=== PATIENT | female | born 1950 | race African-American/Black ===

== ENCOUNTER 2017-12-06 07:52 | Day surgery (SDC) | payer OTHER, MEDICARE ==
[2017-12-06] MEDS ORDERED: CEFAZOLIN 1 GM INJ (09:07)
[2017-12-06] MEDS ORDERED: MIDAZOLAM 1 MG/ML 2 ML INJ (09:07)
[2017-12-06] MEDS ORDERED: PROPOFOL 20 ML ×2 (09:07→09:09)
[2017-12-06] MEDS ORDERED: ROPIVACAINE 0.5 % 30 ML VIAL (09:08)
[2017-12-06] MEDS ORDERED: FENTAnyl 50 MCG/ML VIAL ×2 (09:08→09:53)
[2017-12-06] MEDS: POLYMYXIN/BACITRACIN 1L IRRIG (09:27)
[2017-12-06] MEDS: BUPIVACAINE 0.5% (SDV) 30 ML INJ (09:27)
[2017-12-06] MEDS ORDERED: DEXAMETHASONE 4 MG/ML 1 ML INJ (09:28)
[2017-12-06] MEDS ORDERED: PHENYLephrine (100 MCG/ML) 5ML SYG ×2 (09:29→09:57)
[2017-12-06] MEDS ORDERED: ONDANSETRON 4 MG INJ (09:30)
[2017-12-06] MEDS ORDERED: METOCLOPRAMIDE 10 MG INJ (09:30)
[2017-12-06] MEDS ORDERED: KETOROLAC 30 MG INJ (09:30)
[2017-12-06] MEDS ORDERED: EPHEDrine 25 MG/5 ML SYG (09:57)
[2017-12-06] MEDS ORDERED: ONDANSETRON 4 MG INJ IV ×2 (10:30→11:30)
[2017-12-06] MEDS ORDERED: METOCLOPRAMIDE 10 MG INJ IV (10:30)
[2017-12-06] MEDS ORDERED: FENTAnyl 50 MCG/ML VIAL IV ×3 (10:30)
[2017-12-06] MEDS ORDERED: OXYCODONE/ACETAMINOPHEN (5/325) TAB PO ×3 (10:30→11:30)
[2017-12-06] MEDS ORDERED: hydrALAzine 20 MG INJ IV (10:30)
[2017-12-06] MEDS ORDERED: MEPERIDINE 25 MG INJ IV (10:30)
[2017-12-06] MEDS ORDERED: LABETALOL HCL 20MG INJ IV (10:30)
[2017-12-06] MEDS ORDERED: HYDROmorphONE 1 MG/5 ML IV SYRINGE IV ×3 (10:30)
[2017-12-06] MEDS ORDERED: DIPHENHYDRAMINE 50 MG INJ IV (10:30)
[2017-12-06] MEDS ORDERED: BUPIVACAINE 0.5% (SDV) 30 ML INJ (11:04)
[2017-12-06] MEDS ORDERED: TRIAMCINOLONE ACET 40 MG/ML INJ (11:04)
[2017-12-06] MEDS ORDERED: morphine 2 MG INJ IV (11:30)
[2017-12-06] MEDS: EPHEDrine SULFATE 50 MG/5 ML SYG IV (12:16)
== END 2017-12-06 15:10 | disposition home or self-care (01) ==
LOC: SDS 07:52
DX: M21.611 Bunion of right foot (principal); M20.41 Other hammer toe(s) (acquired), right foot; I10 Essential (primary) hypertension; E78.5 Hyperlipidemia, unspecified
CPT/HCPCS: 28285; 71045; 88304; 88311; 93005

== ENCOUNTER 2018-08-08 06:23 | Day surgery (SDC) | payer OTHER ==
[2018-08-08] MEDS ORDERED: TRIMETHOBENZAMIDE 100 MG/ML VIAL IM (11:00)
[2018-08-08] MEDS ORDERED: ALBUTEROL 0.083% (NEB) 2.5 MG/3 ML AMP HHN (11:00)
[2018-08-08] MEDS ORDERED: MIDAZOLAM 1 MG/ML 2 ML INJ IV (11:00)
[2018-08-08] MEDS ORDERED: OXYCODONE/ACETAMINOPHEN (5/325) TAB PO ×2 (11:00)
[2018-08-08] MEDS ORDERED: HYDROmorphONE 1 MG/5 ML IV SYRINGE IV ×3 (11:00)
[2018-08-08] MEDS ORDERED: EPHEDrine SULFATE 50 MG/5 ML SYG IV (11:00)
[2018-08-08] MEDS ORDERED: FENTAnyl 50 MCG/ML VIAL IV ×3 (11:00)
[2018-08-08] MEDS ORDERED: ONDANSETRON 4 MG INJ IV (11:00)
[2018-08-08] MEDS ORDERED: MEPERIDINE 25 MG INJ IV (11:00)
[2018-08-08] MEDS ORDERED: DIPHENHYDRAMINE 50 MG INJ IV (11:00)
[2018-08-08] MEDS ORDERED: LABETALOL HCL 20MG INJ IV (11:00)
[2018-08-08] MEDS ORDERED: IPRATROPIUM (NEB) 0.5 MG/2.5 ML AMP HHN (11:00)
[2018-08-08] MEDS ORDERED: hydrALAzine 20 MG INJ IV (11:00)
[2018-08-08] MEDS ORDERED: FENTAnyl 50 MCG/ML VIAL (11:01)
[2018-08-08] MEDS ORDERED: MIDAZOLAM 1 MG/ML 2 ML INJ (11:01)
[2018-08-08] MEDS ORDERED: ONDANSETRON 4 MG INJ (11:01)
[2018-08-08] MEDS ORDERED: PROPOFOL 20 ML (11:01)
[2018-08-08] MEDS ORDERED: GLYCOPYRROLATE 0.4 MG INJ ×2 (11:01→13:16)
[2018-08-08] MEDS ORDERED: CEFAZOLIN 1 GM INJ (11:01)
[2018-08-08] MEDS ORDERED: ROCURONIUM 50 MG INJ (11:01)
[2018-08-08] MEDS ORDERED: NEOSTIGMINE 3 MG/3 ML SYRINGE ×2 (11:01→13:16)
[2018-08-08] MEDS ORDERED: DEXAMETHASONE 4 MG/ML 5 ML INJ (11:01)
[2018-08-08] MEDS ORDERED: POLYMYXIN/BACITRACIN 1L IRRIG (11:11)
[2018-08-08] MEDS: BUPIVACAINE 0.5% (SDV) 30 ML INJ (11:13)
[2018-08-08] MEDS: DEXAMETHASONE 4 MG/ML 1 ML INJ (11:13)
[2018-08-08] MEDS: LIDOCAINE 2% (MDV) 20 ML INJ (11:13)
[2018-08-08] MEDS: TRIAMCINOLONE ACET 40 MG/ML INJ (12:24)
[2018-08-08] MEDS: BACITRACIN/POLYMYXIN 28.35 GM OINT TOP (12:25)
== END 2018-08-08 17:15 | disposition home or self-care (01) ==
LOC: SDS 06:23
DX: M21.612 Bunion of left foot (principal); M20.42 Other hammer toe(s) (acquired), left foot
CPT/HCPCS: 28285; 71045; 73620; 88304; 88311